=== PATIENT | female | born 2000 | race Caucasian/White ===

== ENCOUNTER 2020-01-07 12:23 | Emergency (ER) | payer BC ==
[2020-01-07 12:36] VITALS: BP 122/87; PULSE 95
[2020-01-07] MEDS ORDERED: Ketorolac 60 MG/2 ML SDV IM ONE (12:59)
--- NOTE | 2020-01-07 13:05 | EDM.PDOC ---
ED HPI GENERAL MEDICAL PROBLEM - General Chief Complaint: ENT Problem Stated Complaint: R SIDE TOOTH PAIN Time Seen by Provider: 01/07/20 12:39 Source of Information: Reports: Patient History Limitations: Reports: No Limitations - History of Present Illness INITIAL COMMENTS - FREE TEXT/NARRATIVE: 19 yo female presents to ER with lower jaw pain associated with her wisdom tooth. She has surgery for extraction scheduled. She denies foul taste, fever or headache. She is concerned with the pain because she starts a new job tomorrow and does not want it to affect her attendance. - Related Data Allergies Allergy/AdvReac Type Severity Reaction Status Date / Time No Known Allergies Allergy Verified 01/07/20 12:44 Home Meds: Home Meds NK [No Known Home Meds] 01/07/20 [History] Past Medical History - Past Health History Medical/Surgical History: Denies Medical/Surgical History HEENT History: Reports: Other (See Below) Other HEENT History: tonsilitis reoccuring Gastrointestinal History: Reports: Other (See Below) Other Gastrointestinal History: several times for severe cramping/ gas pains in past 5 years. 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 Denies: Sinus Problem, Throat Pain Respiratory: Denies: Shortness of Breath, Wheezing Cardiovascular: Denies: Chest Pain ED EXAM, ENT - Physical Exam Exam: See Below Exam Limited By: No Limitations General Appearance: Alert, WD/WN, No Apparent Distress Mouth/Throat: Normal Inspection, Normal Gums, Normal Lips, Normal Oropharynx, Normal Teeth, Dental Pain (area over her right lower wisdom tooth). No: Throat Swelling, Tongue Swelling Head: Atraumatic, Normocephalic Neck: Normal Inspection, Supple, Non-Tender, Full Range of Motion. No: Lymphadenopathy (R), Lymphadenopathy (L) Respiratory/Chest: No Respiratory Distress Course - Vital Signs Last Recorded V/S: Last Vital Signs Temp 36.3 C 01/07/20 12:49 Pulse 95 01/07/20 12:49 Resp 13 01/07/20 12:49 BP 122/87 01/07/20 12:49 Pulse Ox 97 01/07/20 12:49 - Orders/Labs/Meds Orders: Active Orders 24 hr Category Date Time Status Ketorolac [Toradol] Med 01/07/20 12:59 Once 60 mg IM ONETIME ONE Departure - Departure Time of Disposition: 13:02 Disposition: Home, Self-Care 01 Condition: Good Clinical Impression: Jaw pain, Chronic dental pain - Discharge Information *PRESCRIPTION DRUG MONITORING PROGRAM REVIEWED*: Not Applicable *COPY OF PRESCRIPTION DRUG MONITORING REPORT IN PATIENT AFTAB: Not Applicable Referrals: PCP,None [Primary Care Provider] - Additional Instructions: when tooth hurts use Ibuprofen 600-800 mg every 6 hours. be sure to have food in your stomach when taking this dose of ibuprofen follow-up with dentist for extraction Sepsis Event Note (ED) - Evaluation Sepsis Screening Result: No Definite Risk - Focused Exam Vital Signs: Vital Signs Temp Pulse Resp BP Pulse Ox 01/07/20 12:49 36.3 C 95 13 122/87 97 01/07/20 12:34 36.3 C 95 13 122/87 97 - My Orders Last 24 Hours: My Active Orders 01/07/20 12:59 Ketorolac [Toradol] 60 mg IM ONETIME ONE - Assessment/Plan Last 24 Hours: My Active Orders 01/07/20 12:59 Ketorolac [Toradol] 60 mg IM ONETIME ONE
== END 2020-01-07 13:15 | disposition home or self-care (01) ==
LOC: JP.ED 12:23
DX: K08.89 Other specified disorders of teeth and supporting structures (principal); R68.84 Jaw pain; F17.210 Nicotine dependence, cigarettes, uncomplicated
CPT/HCPCS: 96372; 99282; J1885

== ENCOUNTER 2020-03-26 13:49 | Emergency (ER) | payer BC ==
[2020-03-26 14:14] VITALS: BP 128/79; PULSE 101
--- NOTE | 2020-03-26 15:05 | EDM.PDOC ---
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 She is about 9 [id number] preg. She has always had some cramping. Onset: Gradual, Other ( worse today,) Duration: Hour(s): Location: Reports: Abdomen Associated Symptoms: Reports: No Other Symptoms - Related Data Allergies Allergy/AdvReac Type Severity Reaction Status Date / Time No Known Allergies Allergy Verified 03/26/20 14:09 Home Meds: Home Meds Vits #93/Iron Fum/FA [ Formula Tablet] 1 tab PO DAILY 03/26/20 [History] Past Medical History - Past Health History Medical/Surgical History: Denies Medical/Surgical History HEENT History: Reports: Other (See Below) Other HEENT History: tonsilitis reoccuring Gastrointestinal History: Reports: Other (See Below) Other Gastrointestinal History: several times for severe cramping/ gas pains in past 5 years. 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 Musculoskeletal History: Reports: Fracture Dermatologic History: Reports: Eczema, Other (See Below) Other Dermatologic History: rashes - Past Surgical History HEENT Surgical History: Reports: Adenoidectomy, Tonsillectomy Social & Family History - Tobacco Use Tobacco Use Status *Q: Former Tobacco User Years of Tobacco use: 6 Used Tobacco, but Quit: Yes Month/Year Tobacco Last Used: 02/22/2020 - Caffeine Use Caffeine Use: Reports: Soda - Recreational Drug Use Recreational Drug Use: No ED ROS GENERAL - Review of Systems Review Of Systems: See Below Constitutional: Reports: No Symptoms HEENT: Reports: No Symptoms Respiratory: Reports: No Symptoms Cardiovascular: Reports: No Symptoms Endocrine: Reports: No Symptoms GI/Abdominal: Reports: Other (crampy discomfort) : Reports: No Symptoms Musculoskeletal: Reports: No Symptoms Skin: Reports: No Symptoms Neurological: Reports: No Symptoms ED EXAM - Physical Exam Exam: See Below Text/Narrative:: pt arrived with crampy pain in the lower abdoman. She has not had spotting. Exam Limited By: No Limitations General Appearance: Alert, Anxious, Mild Distress Ears: Normal TMs Nose: Normal Inspection Throat/Mouth: Normal Inspection Head: Atraumatic Neck: Normal Inspection Respiratory/Chest: No Respiratory Distress Cardiovascular: Regular Rate, Rhythm GI/Abdominal Exam: Soft, Non-Tender Rectal Exam: Deferred Heart Tones: Not [place] Course - Vital Signs Last Recorded V/S: Last Vital Signs Temp 37.1 C 03/26/20 14:20 Pulse 101 H 03/26/20 14:20 Resp 14 03/26/20 14:20 BP 128/79 03/26/20 14:20 Pulse Ox 96 03/26/20 14:20 - Orders/Labs/Meds Orders: Active Orders 24 hr Category Date Time Status OB Ltd 1 or More Fetus [US] Stat Exams 03/26/20 15:03 Ordered HCG QUANTITATIVE [CHEM] Stat Lab 03/26/20 15:55 Ordered Labs: Laboratory Tests 03/26/20 03/26/20 Range/Units 15:03 15:11 WBC 12.3 H (4.5-11.0) K/uL RBC 4.00 (3.30-5.50) M/uL Hgb 11.7 L D (12.0-15.0) g/dL Hct 35.5 L (36.0-48.0) % MCV 89 (80-98) fL MCH 29 (27-31) pg MCHC 33 (32-36) % Plt Count 373 (150-400) K/uL Neut % (Auto) 75 H (36-66) % Lymph % (Auto) 17 L (24-44) % Stephens % (Auto) 6 (2-6) % Eos % (Auto) 1 L (2-4) % Baso % (Auto) 0 (0-1) % Urine Color Yellow (YELLOW) Urine Appearance Clear (CLEAR) Urine pH 5.5 (5.0-8.0) Ur Specific [place] >= 1.030 (1.008-1.030) Urine Protein Negative (NEGATIVE) mg/dL Urine Glucose (UA) Negative (NEGATIVE) mg/dL Urine Ketones Negative (NEGATIVE) mg/dL Urine Occult Blood Negative (NEGATIVE) Urine Nitrite Negative (NEGATIVE) Urine Bilirubin Negative (NEGATIVE) Urine Urobilinogen 0.2 (0.2-1.0) EU/dL Ur Leukocyte Esterase Negative (NEGATIVE) Urine RBC Not seen (0-5) Urine WBC Not seen (0-5) Ur Epithelial Cells Few Amorphous Sediment Not seen Urine Bacteria Few Urine Mucus Not seen - Re-Assessments/Exams Free Text/Narrative Re-Assessment/Exam: 03/26/20 16:04 pt arrived with servere crampying. She has not had spotting. Pt is followed by Madhavi Woodruff. A quntative hcg was obtained. A US was obtained which appears to show a in the last 2 days. . Departure - Departure Time of Disposition: 16:07 Disposition: Home, Self-Care 01 Condition: Fair Clinical Impression: demise - Discharge Information Referrals: Madhavi Woodruff CNM [Primary Care Provider] - Forms: ED Department Discharge Care Plan Goals: pt is to see Madhavi Woodruff in the next 2 days. She will have a second HCG drawn to compare with the one done in ER Sepsis Event Note (ED) - Evaluation Sepsis Screening Result: No Definite Risk - Focused Exam Vital Signs: Vital Signs Temp Pulse Resp BP Pulse Ox 03/26/20 14:20 37.1 C 101 H 14 128/79 96 03/26/20 14:12 37.1 C 101 H 14 128/79 96 - My Orders Last 24 Hours: My Active Orders 03/26/20 15:03 OB Ltd 1 or More Fetus [US] Stat 03/26/20 15:55 HCG QUANTITATIVE [CHEM] Stat - Assessment/Plan Last 24 Hours: My Active Orders 03/26/20 15:03 OB Ltd 1 or More Fetus [US] Stat 03/26/20 15:55 HCG QUANTITATIVE [CHEM] Stat
--- NOTE | 2020-03-26 16:20 | CRLUS ---
INDICATION: Severe lower abdominal cramping TECHNIQUE: Limited early transabdominal obstetrical ultrasound. COMPARISON: None available FINDINGS: An intrauterine gestational sac is seen, containing a pole with a crown-rump length of 2.3 cm, corresponding to 9 weeks and 1 day. No cardiac activity is documented. A yolk sac is seen, measuring 5 mm. Neither ovary is visualized. No significant free fluid is seen. IMPRESSION: An intrauterine gestation at 9 weeks and 1 day by crown-rump length, without cardiac activity, consistent with demise. Nonvisualization of the ovaries. The findings were discussed with Dr. Partida, by phone, on 03/26/2020 at 4:18 p.m.. Dictated by Madhav Brandon MD @ 03/26/2020 4:19:55 PM Dictated by: Madhav Brandon MD @ 03/26/2020 16:20:01 (Electronically Signed)
== END 2020-03-26 16:20 | disposition home or self-care (01) ==
LOC: JP.ED 13:49
DX: O02.1 Missed abortion (principal); Z87.891 Personal history of nicotine dependence
CPT/HCPCS: 36415; 76815; 81001; 84702; 85025; 99283; 99284-25

== ENCOUNTER 2020-10-06 20:08 | Emergency (ER) | payer BC, MEDICAID ==
--- NOTE | 2020-10-06 20:39 | EDM.PDOC ---
ED HPI GENERAL MEDICAL PROBLEM - General Chief Complaint: ENT Problem Stated Complaint: COVID POSITIVE, ABCESS TOOTH Time Seen by Provider: 10/06/20 20:39 Source of Information: Reports: Patient History Limitations: Reports: No Limitations - History of Present Illness INITIAL COMMENTS - FREE TEXT/NARRATIVE: Jennifer presents today for complaints of left upper dental pain for 2 to 3 days. She reports she has been taking ibuprofen without improvement. She denies recent injury/trauma, fever, chills, nausea, vomiting or other concerns. - Related Data Allergies Allergy/AdvReac Type Severity Reaction Status Date / Time No Known Allergies Allergy Verified 03/26/20 14:09 Home Meds: Home Meds Vits #93/Iron Fum/FA [ Formula Tablet] 1 tab PO DAILY 03/26/20 [History] Ibuprofen [Motrin] 800 mg PO Q6H PRN 10/06/20 [History] Past Medical History - Past Health History Medical/Surgical History: Denies Medical/Surgical History HEENT History: Reports: Other (See Below) Other HEENT History: tonsilitis reoccuring Gastrointestinal History: Reports: Other (See Below) Other Gastrointestinal History: several times for severe cramping/ gas pains in past 5 years. 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 Musculoskeletal History: Reports: Fracture Dermatologic History: Reports: Eczema, Other (See Below) Other Dermatologic History: rashes - Past Surgical History HEENT Surgical History: Reports: Adenoidectomy, Tonsillectomy Social & Family History - Caffeine Use Caffeine Use: Reports: Soda ED ROS ENT - Review of Systems Review Of Systems: See Below Constitutional: Reports: Other (COVID19 positive) HEENT: Reports: Other (dental pain #16 with edema to gum tissues) Respiratory: Reports: No Symptoms Cardiovascular: Reports: No Symptoms Endocrine: Reports: No Symptoms GI/Abdominal: Reports: No Symptoms : Reports: No Symptoms Musculoskeletal: Reports: No Symptoms Skin: Reports: No Symptoms Neurological: Reports: No Symptoms Psychiatric: Reports: No Symptoms Hematologic/Lymphatic: Reports: No Symptoms Immunologic: Reports: No Symptoms ED EXAM, ENT - Physical Exam Exam: See Below Exam Limited By: No Limitations General Appearance: Alert, WD/WN, No Apparent Distress Eye Exam: Bilateral Eye: Normal Inspection, PERRL Ears: Normal External Exam, Normal Canal, Hearing Grossly Normal, Normal TMs. No: Canal Discharge, TM Bulging, TM Dullness, TM Erythema Nose: Normal Inspection, Normal Mucousa, No Blood Mouth/Throat: Normal Lips, Dental Tenderness, Gum Swelling (to area around #16) Head: Atraumatic, Normocephalic Neck: Normal Inspection, Non-Tender, Full Range of Motion, Lymphadenopathy (L). No: Lymphadenopathy (R) Respiratory/Chest: No Respiratory Distress, Lungs Clear, Normal Breath Sounds, No Accessory Muscle Use, Chest Non-Tender. No: Crackles, Rales, Rhonchi, Wheezing Cardiovascular: Normal Peripheral Pulses, Regular Rate, Rhythm, No Edema, No Gallop, No Murmur, No Rub, Irregularly Irregular Back: Normal Inspection, Full Range of Motion. No: CVA Tenderness (R), CVA Tenderness (L) Extremities: Normal Inspection, Normal Range of Motion, No Pedal Edema, Normal Capillary Refill Neurological: Alert, Oriented, Normal Cognition Psychiatric: Normal Affect, Normal Mood Skin: Warm, Dry, Intact, Normal Color, No Rash Lymphatic: No Adenopathy Course - Vital Signs Last Recorded V/S: Last Vital Signs Temp 36.8 C 10/06/20 20:49 Pulse 77 10/06/20 20:49 Resp 16 10/06/20 20:49 BP 122/83 10/06/20 20:49 Pulse Ox 98 10/06/20 20:49 - Orders/Labs/Meds Meds: Medications Discontinued Medications Generic Name Dose Route Start Last Admin Trade Name Noahq PRN Reason Stop Dose Admin Diphenhydramine HCl 50 mg 10/06/20 21:04 10/06/20 21:23 Diphenhydramine 25 Mg Cap PO 10/06/20 21:05 50 mg ONETIME ONE Administration Departure - Departure Time of Disposition: 21:04 Disposition: Home, Self-Care 01 Condition: Good Clinical Impression: Dental infection - Discharge Information *PRESCRIPTION DRUG MONITORING PROGRAM REVIEWED*: No *COPY OF PRESCRIPTION DRUG MONITORING REPORT IN PATIENT AFTAB: No Instructions: Dental Abscess, [id number] Referrals: PCP,None [Primary Care Provider] - Forms: ED Department Discharge Additional Instructions: You have been evaluated and treated for dental infection. Take penicillin as directed. Take ibuprofen 800mg by mouth three times a day with food. Take acetaminophen (tylenol) 1000mg by mouth three times a day with food. Fill prescription for benzocaine topical gel to help with pain. Follow up with dental after quarantine is done. Return as needed and for issues or concerns. Sepsis Event Note (ED) - Focused Exam Vital Signs: Vital Signs Temp Pulse Resp BP Pulse Ox 10/06/20 20:49 36.8 C 77 16 122/83 98 10/06/20 20:41 36.8 C 77 16 122/83 98 - Assessment/Plan Assessment:: Dental infection +COVID19 Plan: Patient evaluated and treated for dental infection. Take penicillin as directed. Take ibuprofen 800mg by mouth three times a day with food. Take acetaminophen (tylenol) 1000mg by mouth three times a day with food. Fill prescription for benzocaine topical gel to help with pain. Follow up with dental after quarantine is done. Return as needed and for issues or concerns.
[2020-10-06 20:42] VITALS: BP 122/83; PULSE 77
[2020-10-06] MEDS ORDERED: diphenhydrAMINE 25 MG Cap PO ONE (21:04)
== END 2020-10-06 21:26 | disposition home or self-care (01) ==
LOC: JP.ED 20:08
DX: K04.7 Periapical abscess without sinus (principal); U07.1 COVID-19
CPT/HCPCS: 99282; 99283; A9270

== ENCOUNTER 2020-10-21 17:59 | Emergency (ER) | payer OTHER, MEDICAID ==
[2020-10-21] MEDS ORDERED: LORazepam 2 MG/ML SDV IVPUSH ONE (18:04)
[2020-10-21] MEDS ORDERED: fentaNYL 100 MCG/2 ML SDV IVPUSH ONE (18:04)
[2020-10-21] MEDS ORDERED: Sodium Chloride 0.9% 10 ML Syringe FLUSH PRN (18:05)
[2020-10-21] MEDS ORDERED: Lactated Ringers 1,000 ML IV SCH (18:15)
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
[2020-10-21] MEDS ORDERED: Sodium Chloride 0.9% 10 ML Syringe FLUSH ONE (18:55)
[2020-10-21] MEDS ORDERED: Iopamidol 612 MG/ML 100 ML Bottle IV SCH (19:00)
[2020-10-21] MEDS ORDERED: Sodium Chloride 0.9% 80 ML IV SCH (19:00)
--- NOTE | 2020-10-21 19:10 | CRLCT ---
Indication: Trauma Technique: Noncontrast head CT Comparison: No comparison Findings: Severe motion study. Study is extremely limited there is no large intracranial hemorrhage or large extra-axial hematoma seen. Fluid in the left maxillary sinus. Right scalp hematoma Impression: Technically unsatisfactory study with severe motion. No large intracranial hemorrhage. Would recommend repeat imaging. Right-sided scalp hematoma. Fluid in left maxillary sinus. Please note that all CT scans at this facility use dose modulation, iterative reconstruction, and/or weight-based dosing when appropriate to reduce radiation dose to as low as reasonably achievable. Dictated by Hetal Cardenas MD @ 10/21/2020 7:08:[address] Hetal Cardenas @ Oct 21 2020 7:08PM
--- NOTE | 2020-10-21 19:16 | CRLCT ---
Indication: Trauma Technique: Contrast enhanced CT chest abdomen pelvis Comparison: No comparison Findings: Normal caliber thoracic aorta. Heart size normal. No mediastinal or hilar adenopathy no pneumothorax. No pericardial effusion. No pleural effusion. Lungs are clear. Liver spleen pancreas gallbladder adrenal normal caliber abdominal aorta symmetric enhancement of both kidneys. Normal appendix. Enhancing lesion left ovary probably reflects a corpus luteum cyst. Urinary bladder unremarkable. Bowel is unremarkable. No free air or free fluid. No acute fracture seen. Impression: 1. No acute findings in the chest abdomen pelvis. No acute fracture. Please note that all CT scans at this facility use dose modulation, iterative reconstruction, and/or weight-based dosing when appropriate to reduce radiation dose to as low as reasonably achievable. Dictated by Hetal Cardenas MD @ 10/21/2020 7:14:[address] Hetal Cardenas @ Oct 21 2020 7:14PM
--- NOTE | 2020-10-21 19:24 | CRLCT ---
Indication: Trauma Technique: Volumetric multidetector CT images of the cervical spine were obtained without the administration of IV contrast. Comparison: None available. Findings: Motion artifact at the level of the C3 and C4 vertebral bodies markedly limits evaluation of these levels otherwise, the vertebral body heights are maintained. 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 There is straightening of the normal cervical lordosis with likely mild anterolisthesis of C4 on C5. There is additional mild anterolisthesis of C5 on C6. There is no definite displaced fracture. There is mild early degenerative disc height loss and marginal osteophyte formation C5-C6 level. The facets are well imbricated. The paraspinous soft tissues are grossly within normal limits. Impression: Overall moderately limited exam due to motion artifact at the level of the C3 and C4 vertebral bodies. Displaced fractures at these levels cannot entirely be excluded. Mild spasmodic straightening and early degenerative changes are appreciated. If there is persistent clinical concern consider follow-up with repeat exam with out motion artifact. 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 Please note that all CT scans at this facility use dose modulation, iterative reconstruction, and/or weight-based dosing when appropriate to reduce radiation dose to as low as reasonably achievable. Dictated by Jeremiah Vela MD @ 10/21/2020 7:23:[address] Jeremiah Vela @ Oct 21 2020 7:23PM
[2020-10-21] MEDS ORDERED: Ketorolac 30 MG/ML SDV IVPUSH ONE (19:47)
[2020-10-21] MEDS ORDERED: Cyclobenzaprine 10 MG Tab PO ONE (19:47)
[2020-10-21 20:24] VITALS: BP 115/74; PULSE 111
--- NOTE | 2020-10-21 21:00 | CRLCT ---
Indication: Trauma, repeated due to motion Technique: Volumetric multidetector CT images of the cervical spine were obtained without the administration of IV contrast. Comparison: CT cervical spine October 21, 2020 Findings: There is improved characterization of the cervical vertebral body heights. There is decreased motion of the C3 and C4 levels. Overall, the vertebral bodies are intact. Previously seen questionable skullbase segmentation anomaly likely represented abnormal positioning and volume averaging. There is persistent mild spasmodic reversal of the normal cervical lordosis. There is no displaced fracture or dislocation. The intervertebral discs are grossly preserved in height. The facets are well imbricated. The paraspinous soft tissues are grossly within normal limits. Impression: Overall significantly improved quality of exam from comparison with better characterization of the C3 and C4 levels. There is no evidence of displaced fracture. The vertebral bodies are grossly maintained with mild spasmodic reversal of the normal cervical lordosis. Previously seen questionable skullbase segmentation anomaly has resolved likely representing volume averaging and asymmetry from previous malpositioned examination. Please note that all CT scans at this facility use dose modulation, iterative reconstruction, and/or weight-based dosing when appropriate to reduce radiation dose to as low as reasonably achievable. Dictated by Jeremiah Vela MD @ 10/21/2020 8:58:[address] Jeremiah Vela @ Oct 21 2020 8:58PM
== END 2020-10-21 21:20 | disposition home or self-care (01) ==
LOC: JP.ED 17:59
DX: T14.8XXA Other injury of unspecified body region, initial encounter (principal); V89.2XXA Person injured in unspecified motor-vehicle accident, traffic, initial encounter
CPT/HCPCS: 36415; 70450; 71260; 72125; 74177; 80053; 80305; 80307; 81001; 83605; 83690; 84703; 85025; 96374; 96375; 99285; A9270; J1885; J2060; J3010; J7120

== ENCOUNTER 2021-07-01 03:44 | Inpatient (IN) | payer MEDICAID ==
[2021-07-01] MEDS ORDERED: Misoprostol 50 MCG (1/2 of 100 MCG) Tab VAG ONE ×2 (07:35→12:15)
[2021-07-01] MEDS ORDERED: Misoprostol 50 MCG (1/2 of 100 MCG) Tab ONE (07:55)
[2021-07-01] MEDS ORDERED: Sodium Chloride 0.9% 10 ML Syringe FLUSH PRN (08:14)
[2021-07-01] MEDS ORDERED: Misoprostol 25 MCG (1/4 of 100 MCG) Tab VAG ONE (12:30)
[2021-07-01] MEDS ORDERED: Lactated Ringers 1,000 ML IV ONE (15:00)
[2021-07-01] MEDS ORDERED: ePHEDrine 50 MG/ML SDV IVPUSH PRN (15:29)
[2021-07-01] MEDS: Lactated Ringers 1,000 ML IV SCH ×2 (15:40→23:43)
[2021-07-01] MEDS ORDERED: Ropivacaine 100 ML ONE (17:01)
[2021-07-01] MEDS ORDERED: Ampicillin 1 GM in Sodium Chloride 0.9% 50 ML IV ONE (19:15)
[2021-07-01] MEDS ORDERED: Ropivacaine 200 MG in Premix Bag 1 BAG EPIDUR SCH (23:45)
[2021-07-02] MEDS ORDERED: Witch Hazel Medicated Pads 100/Jar TOP ONE (01:11)
[2021-07-02] MEDS ORDERED: Hydrocortisone 2.5% Crm 30 GM Tube TOP PRN (01:11)
[2021-07-02] MEDS ORDERED: Lanolin 100% Cream 40 GM Tube TOP ONE (01:11)
[2021-07-02] MEDS ORDERED: Benzocaine 20% Top Spray 56 GM Bottle TOP ONE (01:11)
[2021-07-02] MEDS ORDERED: Ibuprofen 200 MG Tab, 24 Tab Bulk Bottle PO PRN (01:43)
[2021-07-02] MEDS ORDERED: Acetaminophen 325 MG Tab, 50 Tab Bulk Bottle PO PRN (01:43)
[2021-07-02] MEDS ORDERED: Nitrofurantoin Monohydrate/Macrocrystalline 100 MG Cap PO SCH (10:00)
[2021-07-02] MEDS: Amoxicillin 500 MG Cap PO SCH ×2 (11:27→21:04)
[2021-07-03] MEDS: Amoxicillin 500 MG Cap PO SCH (09:04)
[2021-07-03 12:19] VITALS: BP 109/62; PULSE 76
== END 2021-07-03 13:00 | disposition home or self-care (01) | DRG 806 ==
LOC: JP.OB 06:55 → OBSVTOIN 07-02 00:34 → JP.MS 07-02 04:00
PROVIDERS: ADMIT Nurse Practitioner Family; ATTEND Nurse Practitioner Family
PROC: 10E0XZZ Delivery of Products of Conception, External Approach (ICD-10-PCS; principal; 2021-07-02)
PROC: 3E0P7VZ Introduction of Hormone into Female Reproductive, Via Natural or Artificial Opening (ICD-10-PCS; 2021-07-02)
PROC: 10907ZC Drainage of Amniotic Fluid, Therapeutic from Products of Conception, Via Natural or Artificial Opening (ICD-10-PCS; 2021-07-02)
PROC: 0HQ9XZZ Repair Perineum Skin, External Approach (ICD-10-PCS; 2021-07-02)
PROC: 4A1HXCZ Monitoring of Products of Conception, Cardiac Rate, External Approach (ICD-10-PCS; 2021-07-02)
DX: O75.3 Other infection during labor (principal); N39.0 Urinary tract infection, site not specified; Z37.0 Single live birth; Z3A.40 40 weeks gestation of pregnancy; O48.0 Post-term pregnancy; O69.81X0 Labor and delivery complicated by cord around neck, without compression, not applicable or unspecified; O70.0 First degree perineal laceration during delivery; O77.0 Labor and delivery complicated by meconium in amniotic fluid; O99.02 Anemia complicating childbirth; D64.9 Anemia, unspecified
CPT/HCPCS: 36415; 51702; 80305-QW; 81001; 85027; 86850; 86900; 86901; A9270-GY; J0290; J2590; J2795; J7120